=== PATIENT | male | born 1975 | race Caucasian/White ===

== ENCOUNTER 2021-01-04 10:24 | Emergency (ER) | payer BC ==
[2021-01-04] MEDS ORDERED: Dextrose 5%-Lactated Ringers 1,000 ML IV SCH (11:45)
--- NOTE | 2021-01-04 11:50 | EDM.PDOC ---
ED HPI GENERAL MEDICAL PROBLEM - General Chief Complaint: Gastrointestinal Problem Stated Complaint: DIARRHEA X 5 DAYS Time Seen by Provider: 01/04/21 11:45 Source of Information: Reports: Patient History Limitations: Reports: No Limitations - History of Present Illness INITIAL COMMENTS - FREE TEXT/NARRATIVE: 45-year-old male presents to the ED in the accompaniment of his . He reports that he has been sick for about 5 days with severe diarrhea and were between 14-20 loose diarrhea stools per day. Most of them are small quantity with acute urgency to defecate. This was predated by difficulty urinating and pain in his right groin and bladder area suggesting likely passage of the kidney stone. No past history of colitis or bowel disease. Has not been seen in the E D for 14 years. Recently started on medication for hypertension. 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 States the water that he drinks is either [place] or out of a bottle. Does not eat out and cannot member the last time he had fast food. His is no signs of illness. He has not been on any antibiotics for years. Patient states he is very lightheaded and dizzy particular upon standing from a supine or sitting position. States he is so weak he can hardly lift his arms or his neck today due to weakness. No nausea or vomiting. States if he eats anything it goes right through him within about 10 minutes. Patient is experiencing very minimal abdominal cramping discomfort. Onset: Sudden Onset Date: 12/31/20 Duration: Day(s):, Getting Worse Location: Reports: Abdomen (Severe diarrhea x5 days) Quality: Reports: Other Severity: Severe Improves with: Reports: None Worsens with: Reports: Eating (Your drinking anything will cause diarrhea to clear within 10 minutes very minimal associated abdominal cramping pain) Context: Reports: Other (Spontaneous onset of). Denies: Activity, Exercise, Lifting, Sick Contact, Trauma Treatments ROPE RIDER: Reports: Other (see below) Other Treatments ROPE RIDER: pepto bismol one day - Related Data Allergies Allergy/AdvReac Type Severity Reaction Status Date / Time No Known Allergies Allergy Verified 01/04/21 11:08 Home Meds: Home Meds Cholecalciferol (Vitamin D3) [Vitamin D3] 5,000 unit PO DAILY 01/04/21 [History] Omeprazole Magnesium [Prilosec] 20 mg PO DAILY 01/04/21 [History] amLODIPine Bes/Olmesartan Med [Amlodipine-Olmesartan 5-20 mg] 1 tab PO DAILY 01/04/21 [History] Past Medical History Cardiovascular History: Reports: Hypertension Gastrointestinal History: Reports: GERD - Infectious Disease History Infectious Disease History: Reports: Chicken Pox - Past Surgical History HEENT Surgical History: Reports: Adenoidectomy, Tonsillectomy Social & Family History - Tobacco Use Tobacco Use Status *Q: Never Tobacco User - Caffeine Use Caffeine Use: Reports: Coffee - Recreational Drug Use Recreational Drug Use: No - Living Situation & Occupation Living situation: Reports: Occupation: Employed (Working as a hand spray operator at present.) ED ROS GENERAL - Review of Systems Review Of Systems: See Below Constitutional: Reports: Chills, Malaise, Weakness (Few chills.), Fatigue, Decreased Appetite, Weight Loss. Denies: Fever HEENT: Reports: No Symptoms Respiratory: Reports: No Symptoms Cardiovascular: Reports: No Symptoms Endocrine: Reports: Fatigue GI/Abdominal: Reports: Diarrhea (Severe diarrhea x5 days on average 15-20 stools per day or more. They are usually of small quantity yellow without any blood.). Denies: Abdominal Pain, Hematochezia, Melena, Nausea, Vomiting : Reports: Other (Patient in signs and symptoms of a renal stone predating the development of diarrhea with difficulty voiding dribbling and bladder pain. This lasted about 3 days. Cleared up spontaneously.) Musculoskeletal: Reports: No Symptoms Skin: Reports: No Symptoms Neurological: Reports: No Symptoms Psychiatric: Reports: No Symptoms Hematologic/Lymphatic: Reports: No Symptoms Immunologic: Reports: No Symptoms ED EXAM, GI/ABD - Physical Exam Exam: See Below Exam Limited By: No Limitations General Appearance: Alert, WD/WN, No Apparent Distress, Other (Blood pressure is very low it is only 80/68 supine. Temperature is 36.6. Respiratory is 20 with O2 sats of 98% room air. Heart rate at the bedside was 118/min.) Eyes: Bilateral: Normal Appearance (No blepharal pallor or scleral icterus.) Throat/Mouth: Normal Inspection, Normal Lips, Normal Oropharynx, Other Head: Atraumatic (Tongue is extremely dry and coated.), Normocephalic Neck: Normal Inspection, Supple, Non-Tender, Full Range of Motion. No: Lymphadenopathy (L), Lymphadenopathy (R) Respiratory/Chest: No Respiratory Distress, Lungs Clear, Normal Breath Sounds, No Accessory Muscle Use Cardiovascular: Normal Peripheral Pulses, No Edema (118 at the bedside.), No Gallop, No Murmur, No Rub, Tachycardia GI/Abdominal Exam: Normal Bowel Sounds, Soft, Non-Tender, No Organomegaly, No Mass, Pelvis Stable, Other (No surgical scars.). No: Guarding, Rigid, Rebound, Tender (Male) Exam: No Hernia Back Exam: Normal Inspection, Full Range of Motion. No: CVA Tenderness (L), CVA Tenderness (R) Extremities: Normal Inspection, Normal Range of Motion, Non-Tender, No Pedal Edema Neurological: Alert, Oriented, CN II-XII Intact, Normal Cognition, Normal Gait Psychiatric: Normal Affect, Normal Mood Skin Exam: Warm, Dry, Intact, Normal Color, No Rash Course - Vital Signs Last Recorded V/S: Last Vital Signs Temp 36.7 C 01/04/21 16:25 Pulse 98 01/04/21 16:25 Resp 18 01/04/21 16:25 BP 122/79 01/04/21 16:25 Pulse Ox 98 01/04/21 16:25 Orthostatic Blood Pressure [ 89/69 Standing] Orthostatic Blood Pressure [ 96/66 Sitting] Orthostatic Blood Pressure [ 93/64 Supine] - Orders/Labs/Meds Orders: Active Orders 24 hr Category Date Time Status FECAL LACTOFERRIN [MREF] Stat Lab 01/04/21 12:56 Received STOOL CULTURE/SHIGA TOXIN [MREF] Stat Lab 01/04/21 12:56 Received Labs: Laboratory Tests 01/04/21 01/04/21 01/04/21 Range/Units 12:33 12:33 12:33 WBC 5.30 (4.23-9.07) K/mm3 RBC 3.99 L (4.63-6.08) M/mm3 Hgb 13.2 L D (13.7-17.5) gm/dl Hct 38.7 L (40.1-51.0) % MCV 97.0 H (79.0-92.2) fl MCH 33.1 H (25.7-32.2) pg MCHC 34.1 (32.2-35.5) g/dl RDW Std Deviation 47.7 H (35.1-43.9) fL Plt Count 227 (163-337) K/mm3 MPV 10.2 (9.4-12.3) fl Neut % (Auto) 81.5 H (34.0-67.9) % Lymph % (Auto) 9.6 L (21.8-53.1) % Putnam % (Auto) 8.3 (5.3-12.2) % Eos % (Auto) 0.2 L (0.8-7.0) Baso % (Auto) 0.2 (0.1-1.2) % Neut # (Auto) 4.32 (1.78-5.38) K/mm3 Lymph # (Auto) 0.51 L (1.32-3.57) K/mm3 Putnam # (Auto) 0.44 (0.30-0.82) K/mm3 Eos # (Auto) 0.01 L (0.04-0.54) K/mm3 Baso # (Auto) 0.01 (0.01-0.08) K/mm3 Manual Slide Review Abnormal smear ESR 31 H (0-15) mm/hr Sodium 136 (136-145) mEq/L Potassium 4.0 (3.5-5.1) mEq/L Chloride 102 (98-107) mEq/L Carbon Dioxide 19 L (21-32) mEq/L Anion Gap 19.0 H (5-15) BUN 46 H D (7-18) mg/dL Creatinine 4.0 H D (0.7-1.3) mg/dL Est Cr Clr Drug Dosing 24.58 mL/min Estimated GFR (MDRD) 16 (>60) mL/min BUN/Creatinine Ratio 11.5 L (14-18) Glucose 306 H (70-99) mg/dL Calcium 8.3 L (8.5-10.1) mg/dL Magnesium 2.2 (1.8-2.4) mg/dL Total Bilirubin 0.3 (0.2-1.0) mg/dL AST 20 (15-37) U/L ALT 38 (16-63) U/L Alkaline Phosphatase 71 (46-116) U/L C-Reactive Protein 11.6 H* (<1.0) mg/dL Total Protein 6.9 (6.4-8.2) g/dl Albumin 2.9 L (3.4-5.0) g/dl Globulin 4.0 gm/dL Albumin/Globulin Ratio 0.7 L (1-2) C.difficile 027-NAP1-B1 C. difficile Tox (PCR) SARS-CoV-2 RNA (SY) (NEGATIVE) 01/04/21 01/04/21 Range/Units 12:56 15:51 WBC (4.23-9.07) K/mm3 RBC (4.63-6.08) M/mm3 Hgb (13.7-17.5) gm/dl Hct (40.1-51.0) % MCV (79.0-92.2) fl MCH (25.7-32.2) pg MCHC (32.2-35.5) g/dl RDW Std Deviation (35.1-43.9) fL Plt Count (163-337) K/mm3 MPV (9.4-12.3) fl Neut % (Auto) (34.0-67.9) % Lymph % (Auto) (21.8-53.1) % Putnam % (Auto) (5.3-12.2) % Eos % (Auto) (0.8-7.0) Baso % (Auto) (0.1-1.2) % Neut # (Auto) (1.78-5.38) K/mm3 Lymph # (Auto) (1.32-3.57) K/mm3 Putnam # (Auto) (0.30-0.82) K/mm3 Eos # (Auto) (0.04-0.54) K/mm3 Baso # (Auto) (0.01-0.08) K/mm3 Manual Slide Review ESR (0-15) mm/hr Sodium (136-145) mEq/L Potassium (3.5-5.1) mEq/L Chloride (98-107) mEq/L Carbon Dioxide (21-32) mEq/L Anion Gap (5-15) BUN (7-18) mg/dL Creatinine (0.7-1.3) mg/dL Est Cr Clr Drug Dosing mL/min Estimated GFR (MDRD) (>60) mL/min BUN/Creatinine Ratio (14-18) Glucose (70-99) mg/dL Calcium (8.5-10.1) mg/dL Magnesium (1.8-2.4) mg/dL Total Bilirubin (0.2-1.0) mg/dL AST (15-37) U/L ALT (16-63) U/L Alkaline Phosphatase (46-116) U/L C-Reactive Protein (<1.0) mg/dL Total Protein (6.4-8.2) g/dl Albumin (3.4-5.0) g/dl Globulin gm/dL Albumin/Globulin Ratio (1-2) C.difficile 027-NAP1-B1 Presumptive negative C. difficile Tox (PCR) Negative SARS-CoV-2 RNA (SY) Negative (NEGATIVE) Meds: Medications Discontinued Medications Generic Name Dose Route Start Last Admin Trade Name Freq PRN Reason Stop Dose Admin Dextrose/Lactated Ringer's 1,000 mls @ 999 mls/hr 01/04/21 11:45 01/04/21 11:52 Dextrose 5%-Lactated Ringers IV 999 mls/hr ASDIRECTED CHRIS Administration Lactated Ringer's 1,000 mls @ 999 mls/hr 01/04/21 13:00 01/04/21 13:18 Ringers, Lactated IV 999 mls/hr ASDIRECTED CHRIS Administration Lactated Ringer's 1,000 mls @ 999 mls/hr 01/04/21 14:38 01/04/21 14:40 Ringers, Lactated IV 01/04/21 15:38 999 mls/hr .BOLUS ONE Administration Lactated Ringer's 1,000 mls @ 999 mls/hr 01/04/21 14:58 01/04/21 16:17 Ringers, Lactated IV 01/04/21 15:58 Not Given .BOLUS ONE - Radiology Interpretation Free Text/Narrative:: 45-year-old male presents to the ED with a 5-day history of severe diarrhea anywhere between 15 and 20 loose diarrhea stools per day. They are made worse by trying to eat or drink water. No recent antibiotic usage. 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 Usually bottled water or [place] water. He has not ate out at any fast food restaurants. His is with him and she is not ill. No past history of colitis or problems with his bowel. Patient clinically is hypotensive at the bedside and very weak states even lifting his arm or his neck is difficult due to weakness. This suggest that he may be hypomagnesemic and/or hypokalemic or both. He is obviously quite significantly volume depleted. IV will be D5 Ringer's lactate at open. Stools will be collected for culture and sensitivity and lactoferrin a nd C. difficile. Routine labs ordered - Re-Assessments/Exams Free Text/Narrative Re-Assessment/Exam: 01/04/21 13:00 Chemistry is still pending. First liter of IV fluids has been infused. Second liter will be Ringer's lactate at open. He has passed a stool sample which is dark brown liquidy stool. No blood appreciated. 01/04/21 14:12 Chemistry reveals a sodium of 136 and a potassium of 4.0. Chloride 1 2 with a bicarb of 19 and an anion gap of 19.0. BUN is 46 with a creatinine of 4.0 and a GFR of 14 suggesting acute renal insufficiency/near failure. Glucose is elevated at 306. Calcium is 8.3. Magnesium is 2.2. Liver function normal. C-reactive protein is 11.6. Total protein 6.9 with an albumin fraction of 2.9. 01/04/21 15:37 the of the abdomen has been completed without any contrast. Visualized portions of the lungs appear normal. Liver is normal. Pancreas appears normal. Spleen appears normal. Gallbladder contains no calcified gallstones. Both kidneys appear to be within normal limits with no signs of any renal stones or hydronephrosis. Both adrenal glands appear to be normal. Small bowel normal. Large bowel shows a few diverticuli in the sigmoid colon with slight surrounding inflammation suggesting possible diverticulitis. This certainly would not account for the patient's severe diarrhea. There was no sign of obstruction from a stone in the bladder or neck of the bladder. 01/04/21: 15:55: CT scan of the abdomen has been completed without contrast per renal protocol no prior CT is available for comparison purposes. Small parapelvic cysts are seen within the left kidney. Both kidneys show no abnormal calcifications. No ureteral dilatation or ureteral stone is identified. No bladder calculi are seen. There is mild inflammatory change being seen around the sigmoid colon which surrounds the diverticuli. Findings are felt compatible with mild minute mild to minimal diverticulitis. Visualized lung bases show nothing acute. Noncontrast appearance of the liver and spleen are within normal limits. Adrenal glands show no nodules. Pancreas appears to be within normal limits. Gallbladder contains no calcified gallstones. Abdominal aorta shows no aneurysm. There is no retroperitoneal adenopathy or mesenteric abnormalities appreciated. Appendix is seen which is normal in size. No pelvic mass or adenopathy is seen. Bone window settings were reviewed which show disc base narrowing and vacuum phenomena within the L5-S1 disc. Lesser degenerative changes noted within other portions of the spine. No acute osseous abnormalities appreciated. In particular there is no renal calculi or ureteral dilatation or ureteral calculi's within the urinary bladder to cause obstruction. The bladder does have some urine in it appears to contain about 220 mils of urine. 01/04/21 16:23 I have spoken through the 1 call nurse at [facility] in [place] initially with on-call museum registrar Dr. Sofia and then hospitalist on- call whom has accepted care of this patient. At present we have no ambulance service availability. Patient will thus be transferred per private vehicle with his driving. Patient has received 3 L of Ringer's lactate while in the ED. He has not yet voided at the time of discharge. He has had 4 diarrhea stools while in the emergency department. He will travel directly to [facility]. At this time we do not have availability of ambulance and it will take another 4 hours before one becomes available. His is available to drive him to the hospital at this time and this would be much quicker. Of note bladder scan done at my request revealed 338 mils of urine in his bladder prior to discharge. Patient still did not have any urge to void however. Departure - Departure Time of Disposition: 16:21 Disposition: DC/Tfer to [facility] 02 Condition: Fair Clinical Impression: Severe diarrhea, Chronic renal insufficiency, stage IV (severe), Elevated C- reactive protein (CRP), Intravascular volume depletion - Discharge Information *PRESCRIPTION DRUG MONITORING PROGRAM REVIEWED*: Not Applicable *COPY OF PRESCRIPTION DRUG MONITORING REPORT IN PATIENT BAUTISTA: Not Applicable Referrals: Justina Shen MD [Primary Care Provider] - Forms: ED Department Discharge Additional Instructions: Travel to [facility] in [place] to be admitted to the hospital due to significant decline in kidney function likely secondary to severe dehydration from bad diarrhea over the last 5 days. Strongly suspect bacterial source of diarrhea which may or may not require antibiotic therapy and will be determined by stool cultures. Sepsis Event Note (ED) - Evaluation Sepsis Screening Result: No Definite Risk - Focused Exam Vital Signs: Vital Signs Temp Pulse Resp BP Pulse Ox 01/04/21 16:25 36.7 C 98 18 122/79 98 01/04/21 11:01 36.6 C 20 98 - My Orders Last 24 Hours: My Active Orders 01/04/21 12:56 FECAL LACTOFERRIN [MREF] Stat STOOL CULTURE/SHIGA TOXIN [MREF] Stat - Assessment/Plan Last 24 Hours: My Active Orders 01/04/21 12:56 FECAL LACTOFERRIN [MREF] Stat STOOL CULTURE/SHIGA TOXIN [MREF] Stat
[2021-01-04] MEDS ORDERED: Lactated Ringers 1,000 ML IV SCH (13:00)
[2021-01-04] MEDS ORDERED: Lactated Ringers 1,000 ML IV ONE ×2 (14:38→14:58)
--- NOTE | 2021-01-04 15:56 | CT ---
CT abdomen and pelvis Technique: Multiple axial sections were obtained from above the dome of the diaphragm inferiorly through the pubic symphysis. Intravenous and oral contrast were not utilized. Study has been performed as a ureteral stone protocol. Comparison: No prior CT abdomen or pelvis study is available. Findings: Small parapelvic cysts are seen within the left kidney. Both kidneys show no abnormal calcifications. No ureteral dilatation or ureteral stone is seen. No bladder calculi are seen. There is mild inflammatory change being seen around the sigmoid colon which surrounds a diverticuli. Findings are felt compatible with minimal diverticulitis. Visualized lung bases show nothing acute. Noncontrast appearance of the liver and spleen are within normal limits. Adrenal glands show no nodule. Pancreas appears within normal limits. Gallbladder contains no calcified gallstones. Abdominal aorta shows no aneurysm. No retroperitoneal adenopathy or mesenteric abnormalities are seen. Appendix is seen which is normal in size. No pelvic mass or adenopathy is seen. Bone window settings were reviewed which show disc space narrowing and vacuum phenomena within the L5-S1 disc. Lesser degenerative change is noted within other portions of the spine. No acute osseous abnormality is appreciated. Impression: 1. No renal calculi, ureteral dilatation or ureteral calculus is seen. 2. Findings compatible with minimal diverticulitis surrounding a sigmoid diverticula. 3. Other portions of the noncontrast CT study of the abdomen and pelvis appear unremarkable. Results of this exam were discussed by phone with Dr. Muñoz at time 3:36 PM MDT Diagnostic code #3
== END 2021-01-04 16:45 ==
LOC: JD.ED 10:24
DX: R19.7 Diarrhea, unspecified (principal); K21.9 Gastro-esophageal reflux disease without esophagitis; I12.9 Hypertensive chronic kidney disease with stage 1 through stage 4 chronic kidney disease, or unspecified chronic kidney disease; N18.4 Chronic kidney disease, stage 4 (severe); R79.82 Elevated C-reactive protein (CRP); Z79.899 Other long term (current) drug therapy; Z20.822 Contact with and (suspected) exposure to COVID-19
CPT/HCPCS: 36415; 74176; 80053; 83630; 83735; 85025; 85652; 86140; 87045; 87046; 87493; 87635; 87899; 99285; J7120; J7121; U0002